=== PATIENT | male | born 1990 | race Caucasian/White ===

== ENCOUNTER 2020-09-20 03:51 | Emergency (ER) | payer OTHER ==
[2020-09-20 03:58] VITALS: BP 137/90; PULSE 93; RESP 18; TEMP 98.2
[2020-09-20] MEDS ORDERED: PROPARACAINE 0.5% OPHTH DROPS 15 ML BTL RIGHT EYE STA (04:14)
[2020-09-20] MEDS ORDERED: POLYMYXIN B-TRIMETHOPRIM SULF (10,000-1) OPHTH DROPS 10 ML BTL RIGHT EYE STA (04:31)
--- NOTE | 2020-09-20 04:33 | ED ---
Eye Problem HPI - General Chief complaint: Eye Problems Stated complaint: Eye Problem Time Seen by Provider: 09/20/20 04:06 Source: patient, RN notes reviewed, old records reviewed Mode of arrival: ambulatory - History of Present Illness Initial comments: Is a 30-year-old male DF for evaluation of eye pain. Patient is medically a few days ago but mainly woke up yesterday with some right-sided eye drainage and redness. No change of vision. No other complaints. Patient is no medical history takes no medications MD chief complaint: eye pain -: days(s) Onset Description: gradual Location: right eye Place: home If Injury: direct trauma Eye Symptoms: burning, redness, itching, discharge Severity: moderate Severity scale (1-10): 4 If Pain, Quality: sharp Consistency: constant Context: recent uri, trauma Associated Symptoms: none Treatments Prior to Arrival: none - Related Data Allergies Allergy/AdvReac Type Severity Reaction Status Date / Time No Known Allergies Allergy Verified 09/20/20 03:58 Review of Systems ROS Statement: Those systems with pertinent positive or pertinent negative responses have been documented in the HPI. ROS Other: All systems not noted in ROS Statement are negative. Past Medical History Past Medical History: No Reported History History of Any Multi-Drug Resistant Organisms: None Reported Past Surgical History: No Surgical Hx Reported Past Psychological History: No Psychological Hx Reported Smoking Status: Current every day smoker Past Alcohol Use History: None Reported Past Drug Use History: None Reported General Exam General appearance: alert, in no apparent distress Head exam: Present: atraumatic, normocephalic, normal inspection Eye exam: Present: normal appearance, PERRL, EOMI. Absent: scleral icterus, conjunctival injection, periorbital swelling ENT exam: Present: normal exam, mucous membranes moist Neck exam: Present: normal inspection. Absent: tenderness, meningismus, lymphadenopathy Respiratory exam: Present: normal lung sounds bilaterally. Absent: respiratory distress, wheezes, rales, rhonchi, stridor Cardiovascular Exam: Present: regular rate, normal rhythm, normal heart sounds. Absent: systolic murmur, diastolic murmur, rubs, gallop, clicks GI/Abdominal exam: Present: soft, normal bowel sounds. Absent: distended, tenderness, guarding, rebound, rigid Extremities exam: Present: normal inspection, full ROM, normal capillary refill. Absent: tenderness, pedal edema, joint swelling, calf tenderness Back exam: Present: normal inspection Neurological exam: Present: alert, oriented X3, CN II-XII intact Psychiatric exam: Present: normal affect, normal mood Skin exam: Present: warm, dry, intact, normal color. Absent: rash Course Vital Signs 09/20/20 03:55 Temperature 98.2 F Pulse Rate 93 Respiratory 18 Rate Blood Pressure 137/90 O2 Sat by Pulse 99 Oximetry - Reevaluation(s) Reevaluation #1: medical record is reviewed Patient symptoms are improved here in the ER Patient is in no acute distress In for results and questions have been answered Medical Decision Making - Medical Decision Making 30 male to the ER with right-sided colitis, likely bacterial will be placed on antibiotic drops and can be discharged Disposition Clinical Impression: Bacterial conjunctivitis Disposition: HOME SELF-CARE Condition: Good Is patient prescribed a controlled substance at d/c from ED?: No Referrals: None,Stated [Primary Care Provider] - 1-2 days
== END 2020-09-20 04:53 | disposition home or self-care (01) ==
LOC: EC 03:51
DX: H10.9 Unspecified conjunctivitis (principal); F17.200 Nicotine dependence, unspecified, uncomplicated
CPT/HCPCS: 99283